=== PATIENT | male | born 1950 | race Two or more races ===

== ENCOUNTER 2019-05-15 11:25 | Inpatient (IN) | payer MEDICARE, OTHER ==
[~2019-05-15] VITALS: Ht 172.7 cm; Wt 83.7 kg
[2019-05-15] MEDS ORDERED: SODIUM CHLORIDE 0.9% 1,000 ML IV ONE ×2 (12:33)
[2019-05-15] MEDS ORDERED: MORPHINE SULFATE 4 MG/ML SYR/VIAL IV ONE (12:45)
[2019-05-15] MEDS ORDERED: ONDANSETRON HCL 4 MG/2 ML VIAL IV ONE (12:45)
[2019-05-15 13:16] LABS: Hematocrit 39.6 % (41.0-53.0); Mean Corpuscular Hemoglobin 28.9 pg (28.0-32.0); Mean Corpuscular Hgb Conc. 32.8 g/dL (32.0-36.0); Platelet Count (auto) 126 10^3/uL (140-450); Red Cell Distribution Width 15.1 % (11.8-14.3); White Blood Cell 21.6 10^3/uL (4.4-10.8)
[2019-05-15 13:18] LABS: Basophils % (manual) 0 (0.0-2.0); Blast Cells 0; Metamyelocytes % 0; Myelocytes % 0; Promyelocytes % 0; Reactive Lymphocytes 0
[2019-05-15 13:27] LABS: Urine Amorphous Crystal MANY /hpf (None Seen); Urine Bacteria NONE SEEN /hpf (None Seen); Urine Blood 2+ /uL (Negative); Urine Mucus FEW (None Seen); Urine Specific Gravity 1.021 (1.001-1.035); Urine WBC 1 /hpf (0 - 3)
[2019-05-15 13:33] LABS: Albumin 2.6 g/dL (3.4-5.0); BUN/Creatinine Ratio 19.1; Potassium 3.6 mmol/L (3.5-5.1)
[2019-05-15 13:38] LABS: Bilirubin, Total 0.8 mg/dL (0.2-1.0)
[2019-05-15] MEDS ORDERED: PIPERACILLIN-TAZOB 3.375GM 100 ML IV ONE (13:45)
[2019-05-15 13:55] LABS: Band Neutrophils % (manual) 13; Eosinophils % (manual) 4 (0-7); Lymphocytes % (manual) 1 (10.0-50.0); Monocytes % (manual) 3 (0-12)
[2019-05-15] MEDS ORDERED: MORPHINE SULF INJ 2 MG/ML SYRINGE 1ML IV PRN ×2 (14:30)
[2019-05-15] MEDS ORDERED: NITROGLYCERIN 0.4 MG SL TAB SL PRN (14:30)
[2019-05-15] MEDS ORDERED: ONDANSETRON HCL 4 MG/2 ML VIAL IV PRN (14:30)
[2019-05-15] MEDS: SODIUM CHLORIDE 0.9% 1,000 ML IV SCH (15:08)
[2019-05-15] MEDS ORDERED: CHOL20007 PO (16:22)
[2019-05-15] MEDS ORDERED: LOPETAB OR (16:22)
[2019-05-15] MEDS ORDERED: OMEG100062 PO (16:22)
--- NOTE | 2019-05-15 16:29 | NUR ---
PATIENT ARRIVED TO THE UNIT ALERT AND ORIENTED, STATED HE FEELS MUCH BETTER AND THE PAIN IS NOT THERE RIGHT NOW. PATIENT WAS ABLE TO PROVIDE INFORMATION. ORIENTED TO THE ROOM, CALL LIGHT AND PHONE. CALL LIGHT WITH IN REACH, SIDE RAILS UP X2 BED ON LOWEST POSITION.
[2019-05-15 17:00] VITALS: BP 124/73
[2019-05-15] MEDS: levoFLOXacin 500MG 100 ML IV SCH (17:26)
[2019-05-15] MEDS ORDERED: MORPHINE SULF INJ 2 MG/ML SYRINGE 1ML ONE (17:35)
--- NOTE | 2019-05-15 17:55 | NUR ---
PATIENT WAS MISTAKENLY DISCHARGED, BUT NOW HE IS BACK ON TH ESYSTEM AND ABLE TO RECEIVED TREATMENT. MORPHINE 1MG WAS GIVEN IV.
[2019-05-15] MEDS ORDERED: HYDROcodone-ACET 5/325MG TAB ONE (20:01)
[2019-05-15] MEDS ORDERED: metroNIDAZOLE 500MG/100ML 100 ML IV ONE (21:49)
[2019-05-15 22:00] VITALS: BP 120/73
[2019-05-15] MEDS: metroNIDAZOLE 500MG/100ML 100 ML IV SCH (22:10)
[2019-05-15] MEDS ORDERED: ONDANSETRON HCL 4 MG/2 ML VIAL ONE (22:35)
[2019-05-16] MEDS: SODIUM CHLORIDE 0.9% 1,000 ML IV SCH ×3 (00:30→22:04)
[2019-05-16] MEDS: metroNIDAZOLE 500MG/100ML 100 ML IV SCH ×3 (05:16→22:03)
[2019-05-16 05:34] VITALS: BP 137/72
[2019-05-16] MEDS ORDERED: ONDANSETRON HCL 4 MG/2 ML VIAL ONE (05:34)
--- NOTE | 2019-05-16 07:00 | NUR ---
PT RESTED WELL THROUGHOUT THE NIGHT;VITAL SIGNS STABLE;CALL LIGHT IN REACH.
--- NOTE | 2019-05-16 07:50 | NUR ---
OPENING SHIFT NOTE Assumed care of patient. PT is awake and A&O x4. POC discussed with PT. No s/s of distress at this time. Bed is in lowest, locked position, call light within reach, bed alarm on for safety. Will continue to monitor Q1h and PRN.
[2019-05-16 09:00] VITALS: BP 140/72
[2019-05-16] MEDS: FAMOTIDINE 20 MG TAB PO SCH (10:35)
[2019-05-16] MEDS: levoFLOXacin 500MG 100 ML IV SCH (10:36)
[2019-05-16] MEDS: PROMETHAZINE HCL 25 MG/ML 1ML IV PRN ×2 (12:25→22:20)
--- NOTE | 2019-05-16 12:39 | NUR ---
DR PACHECO MADE AWARE OF BOTH MICROBIOLOGY RESULTS.
--- NOTE | 2019-05-16 12:40 | NUR ---
PT HAS SBP OF 151. INFORMED DR PACHECO. PRN MEDICATION ORDERED. WILL ADMINISTER AND RECHECK
[2019-05-16 13:00] VITALS: BP 151/84
[2019-05-16] MEDS: LABETALOL HCL 5 MG/ML ML 20ML VIAL IV PRN ×2 (13:27→22:22)
[2019-05-16 17:00] VITALS: BP 149/77
--- NOTE | 2019-05-16 19:37 | NUR ---
Opening Shift Note Received report and assumed care of patient. Patient is asleep, awakens to name. No signs or symptoms of distress noted. Instructed patient on plan of care and to call for assistance as needed. Will continue to monitor.
[2019-05-16 22:00] VITALS: BP 167/87
[2019-05-16] MEDS: HYDROcodone-ACET 5/325MG TAB PO PRN (22:22)
[2019-05-17 05:00] VITALS: BP 157/86
[2019-05-17] MEDS: metroNIDAZOLE 500MG/100ML 100 ML IV SCH ×3 (06:04→21:26)
[2019-05-17] MEDS: HYDROcodone-ACET 5/325MG TAB PO PRN ×3 (06:04→23:33)
[2019-05-17] MEDS: LABETALOL HCL 5 MG/ML ML 20ML VIAL IV PRN (06:05)
[2019-05-17 06:12] LABS: Basophils # (auto) 0 10 ^3/uL (0-0.2); Basophils % (auto) 0.3 % (0.0-2.0); Eosinophils # (auto) 0.1 10 ^3/uL (0-0.8); Eosinophils % (auto) 1.1 % (0.0-7.0); Hemoglobin 11.7 g/dL (13.5-17.5); Lymphocytes # (auto) 0.9 10 ^3/uL (0.4-5.4); Lymphocytes % (auto) 6.9 % (10.0-50.0); Mean Corpuscular Hemoglobin 29.4 pg (28.0-32.0); Mean Corpuscular Hgb Conc. 33.5 g/dL (32.0-36.0); Mean Corpuscular Volume 87.7 fL (80.0-100.0); Monocytes # (auto) 0.8 10 ^3/uL (0-1.3); Monocytes % (auto) 5.9 % (0.0-12.0); Neutrophils # (auto) 11.5 10 ^3/uL (1.6-8.6); Neutrophils % (auto) 85.8 % (37.0-80.0); Platelet Count (auto) 108 10^3/uL (140-450); Red Blood Cells 3.99 10^6/uL (4.5-5.90); Red Cell Distribution Width 14.9 % (11.8-14.3); White Blood Cell 13.4 10^3/uL (4.4-10.8)
[2019-05-17] MEDS: SODIUM CHLORIDE 0.9% 1,000 ML IV SCH ×2 (06:30→18:36)
[2019-05-17 06:37] LABS: Albumin 2.2 g/dL (3.4-5.0); BUN/Creatinine Ratio 15.2; Calcium 7.7 mg/dL (8.5-10.1)
[2019-05-17 07:01] LABS: Bilirubin, Total 0.8 mg/dL (0.2-1.0); Total Protein 5.4 g/dL (6.4-8.2)
--- NOTE | 2019-05-17 07:04 | NUR ---
Pain reassessment Reassessed patient pain level, patient stated 4/10 after pain medication administration. Educated patient on pain level scales and pain medication. Repositioned patient for comfort and provided with ice packs. Will endorse to AM nurse.
[2019-05-17 07:43] LABS: Potassium 2.9 mmol/L (3.5-5.1)
--- NOTE | 2019-05-17 07:49 | NUR ---
OPENING SHIFT NOTE Assumed care of patient. PT is awake and A&O x4. POC discussed with PT. Notified of critical lab value. Will notify Dr Bess. Bed is in lowest, locked position, call light within reach, bed alarm on for safety. Will continue to monitor Q1h and PRN.
--- NOTE | 2019-05-17 08:05 | NUR ---
REASSESSED PT ORAL TEMP IS 98.8. DR PACHECO IS AWARE.
--- NOTE | 2019-05-17 08:06 | NUR ---
LEFT VOICEMAIL FOR DR PACHECO REGARDING CRITICAL LAB VALUE AND NIGHTSHIFT VITAL SIGNS WITH REASSESSMENT. AWAITING RESPONSE.
[2019-05-17] MEDS ORDERED: POTASSIUM CHLORIDE 40 MEQ, LIDOCAINE 1% (LOCAL ANESTH.) 4 ML in SODIUM CHL 0.9% 100 ML IV ONE (08:15)
[2019-05-17 09:00] VITALS: BP 159/73
[2019-05-17] MEDS: levoFLOXacin 500MG 100 ML IV SCH (09:22)
[2019-05-17] MEDS: LISINOPRIL 20 MG TAB PO SCH (09:23)
[2019-05-17] MEDS: METOPROLOL TARTRATE 25 MG TAB PO SCH ×2 (09:24→21:26)
[2019-05-17] MEDS: FAMOTIDINE 20 MG TAB PO SCH (09:24)
[2019-05-17 13:00] VITALS: BP 127/75
[2019-05-17 17:17] VITALS: BP 143/73
--- NOTE | 2019-05-17 19:15 | NUR ---
Opening Shift Note Received report from Will RN. Assumed care of patient, awake and alert. No S/S of distress/SOB or pain. Instructed on POC and to call for assist PRN. Fall precaution measures in place, will continue to monitor for changes Q1hr and PRN.
[2019-05-17] MEDS: PROMETHAZINE HCL 25 MG/ML 1ML IV PRN (21:27)
[2019-05-17 22:00] VITALS: BP 181/87
--- NOTE | 2019-05-17 23:33 | NUR ---
LIAT Gan called RN to inform that patient walked out of the room and went into other patient's room. RN went into the room and requested Elvia to interpret what the patient is saying as patient is Chinese speaking. Patient is somewhat confused as he is saying something about the green roll mechanic and kept pacing by the bed and the RN and MINERAL SURVEYOR is explaining that is the IV fluid pump connected. After a while, patient was able to go back to bed and [place] given for headache and abdominal pain at 4/. Bed alarm on, will continue to monitor patient.
[2019-05-18 02:00] VITALS: BP 149/70
[2019-05-18] MEDS: SODIUM CHLORIDE 0.9% 1,000 ML IV SCH ×3 (02:30→22:37)
[2019-05-18 05:00] VITALS: BP 162/79
[2019-05-18] MEDS: metroNIDAZOLE 500MG/100ML 100 ML IV SCH ×3 (06:00→21:27)
[2019-05-18] MEDS: LABETALOL HCL 5 MG/ML ML 20ML VIAL IV PRN ×4 (06:04→17:23)
[2019-05-18 06:07] LABS: Basophils # (auto) 0 10 ^3/uL (0-0.2); Basophils % (auto) 0.3 % (0.0-2.0); Eosinophils # (auto) 0.2 10 ^3/uL (0-0.8); Hematocrit 35.6 % (41.0-53.0); Hemoglobin 11.8 g/dL (13.5-17.5); Lymphocytes # (auto) 1.1 10 ^3/uL (0.4-5.4); Lymphocytes % (auto) 10.2 % (10.0-50.0); Mean Corpuscular Hgb Conc. 33.1 g/dL (32.0-36.0); Mean Corpuscular Volume 87.7 fL (80.0-100.0); Monocytes # (auto) 0.9 10 ^3/uL (0-1.3); Monocytes % (auto) 8.3 % (0.0-12.0); Neutrophils # (auto) 8.9 10 ^3/uL (1.6-8.6); Neutrophils % (auto) 79.2 % (37.0-80.0); Platelet Count (auto) 116 10^3/uL (140-450); Red Blood Cells 4.06 10^6/uL (4.5-5.90); White Blood Cell 11.2 10^3/uL (4.4-10.8)
[2019-05-18 06:22] LABS: Albumin 2.2 g/dL (3.4-5.0); Calcium 7.7 mg/dL (8.5-10.1); Potassium 3.2 mmol/L (3.5-5.1)
[2019-05-18 06:25] LABS: BUN/Creatinine Ratio 12.9; Bilirubin, Total 0.7 mg/dL (0.2-1.0); Total Protein 5.4 g/dL (6.4-8.2)
--- NOTE | 2019-05-18 07:25 | NUR ---
Patient is more alert and oriented now. Endorsed care to Herminia ARMSTRONG.
[2019-05-18 08:00] VITALS: BP 154/88
--- NOTE | 2019-05-18 08:00 | NUR ---
Morning note patient resting in bed with even and unlabored respirations on room air, no distress noted. Instructed patient on POC, fall precautions and to call for assistance as needed. Patient verbalized understanding. Fall precautions in place with call light within reach.
[2019-05-18] MEDS: PROMETHAZINE HCL 25 MG/ML 1ML IV PRN ×2 (09:54→17:31)
[2019-05-18] MEDS: levoFLOXacin 500MG 100 ML IV SCH (09:54)
[2019-05-18] MEDS: METOPROLOL TARTRATE 25 MG TAB PO SCH ×2 (09:54→21:27)
[2019-05-18] MEDS: LISINOPRIL 20 MG TAB PO SCH (09:55)
[2019-05-18] MEDS: PANTOPRAZOLE 40 MG TAB PO SCH ×2 (09:55→21:27)
[2019-05-18] MEDS ORDERED: POTASSIUM CHLORIDE 40 MEQ, LIDOCAINE 1% (LOCAL ANESTH.) 4 ML in SODIUM CHL 0.9% 100 ML IV ONE (10:00)
--- NOTE | 2019-05-18 10:04 | NUR ---
MD was at bedside - Dr. Bess/Pain management This RN was at bedside. This RN removed PRN [place] to be administered for pain. MD instructed RN to non-administer medication. MD to place new order for PRN pain medication.
--- NOTE | 2019-05-18 10:45 | NUR ---
Patient resting in bed with eyes closed Respirations even and unlabored on room air, no distress noted. Patient's spouse at bedside updated on POC.
[2019-05-18] MEDS: HYDROmorphone HCL 2 MG/ML VL IV PRN (11:14)
[2019-05-18] MEDS: ACETAMINOPHEN 500 MG TAB PO PRN (11:46)
--- NOTE | 2019-05-18 11:55 | NUR ---
Patient placed on 1 LPM NC - pulse ox 93% on room air. Respirations even and unlabored, no distress noted. Call light within reach.
--- NOTE | 2019-05-18 11:57 | NUR ---
Cooling measures applied for elevated temperature Temperature 101.2 degrees Fahrenheit. Cooling measures applied. Patient medicated for elevated temperature per MD order. Respirations even and unlabored on 1 LPM NC, no distress noted. Patient's spouse at bedside. Fall precautions in place with call light within reach.
[2019-05-18 12:00] VITALS: BP 176/90
--- NOTE | 2019-05-18 13:02 | NUR ---
RE: Temperature Patient's temperature remains elevated. Cooling measures remain in place. New ice packs applied. Respirations even and unlabored on 1 LPM NC, no distress noted. Pulse ox 98%. Fall precautions in place with call light within reach.
--- NOTE | 2019-05-18 14:43 | NUR ---
Patient resting in bed with even and unlabored respirations on 1 lpm NC, no distress noted. Fall precautions in place with call light within reach. Patient's spouse at bedside.
[2019-05-18 16:55] VITALS: BP 142/77
--- NOTE | 2019-05-18 17:07 | NUR ---
RE: Elevated BP Contacted Dr. Roque to notify of continued elevated BP and ordered BP medications. Message left.
--- NOTE | 2019-05-18 17:50 | NUR ---
Order received and read back to verify. Order received from Dr. Roque.
[2019-05-18] MEDS ORDERED: NIFEdipine ER 30 MG TAB PO ONE (18:00)
--- NOTE | 2019-05-18 18:38 | NUR ---
RE: Pain Patient states "I feel a little better than early." Patient reports pain 4/10. Patient is being medicated for pain per MD order.
--- NOTE | 2019-05-18 18:39 | NUR ---
RE: Diet - poor appetite - refusing meal Patient has refused all meal trays during this RN's shift. Patient stated "I just don't want to eat that." Patient has been medicated for nausea per MD order. Patient reports nausea has improved.
--- NOTE | 2019-05-18 18:40 | NUR ---
Education provided on new medication Patient verbalized understanding. Patient denies having any questions RE: new BP medication. Patient stated "I just want to sleep right now."
--- NOTE | 2019-05-18 18:55 | NUR ---
Closing note patient resting in bed with even and unlabored respirations on room air, no distress noted. Fall precautions in place with call light within reach. Bed alarm on for safety. Patient able to turn self independently.
--- NOTE | 2019-05-18 19:06 | NUR ---
Care endorsed to PATTI Brand.
--- NOTE | 2019-05-18 19:15 | NUR ---
Opening Shift Note Received report from Herminia ARMSTRONG. Assumed care of patient, awake and alert. No S/S of distress/SOB or pain. Instructed on POC and to call for assist PRN, will continue to monitor for changes Q1hr and PRN.
[2019-05-18 22:12] VITALS: BP 158/92
[2019-05-19 05:01] VITALS: BP 125/69
[2019-05-19 05:22] LABS: Basophils # (auto) 0 10 ^3/uL (0-0.2); Basophils % (auto) 0.5 % (0.0-2.0); Eosinophils # (auto) 0.1 10 ^3/uL (0-0.8); Eosinophils % (auto) 0.8 % (0.0-7.0); Hematocrit 36.3 % (41.0-53.0); Hemoglobin 12.3 g/dL (13.5-17.5); Lymphocytes % (auto) 11.6 % (10.0-50.0); Mean Corpuscular Hemoglobin 29.3 pg (28.0-32.0); Mean Corpuscular Hgb Conc. 33.9 g/dL (32.0-36.0); Mean Corpuscular Volume 86.5 fL (80.0-100.0); Monocytes # (auto) 1.3 10 ^3/uL (0-1.3); Monocytes % (auto) 15.3 % (0.0-12.0); Neutrophils # (auto) 6.1 10 ^3/uL (1.6-8.6); Neutrophils % (auto) 71.8 % (37.0-80.0); Platelet Count (auto) 121 10^3/uL (140-450); Red Blood Cells 4.19 10^6/uL (4.5-5.90); Red Cell Distribution Width 14.5 % (11.8-14.3); White Blood Cell 8.5 10^3/uL (4.4-10.8)
[2019-05-19] MEDS: metroNIDAZOLE 500MG/100ML 100 ML IV SCH ×3 (05:48→21:46)
[2019-05-19 05:49] LABS: Albumin 2.2 g/dL (3.4-5.0); Calcium 7.6 mg/dL (8.5-10.1)
[2019-05-19 05:53] LABS: Bilirubin, Total 0.7 mg/dL (0.2-1.0); Potassium 2.9 mmol/L (3.5-5.1); Total Protein 5.5 g/dL (6.4-8.2)
[2019-05-19 05:54] LABS: BUN/Creatinine Ratio 15.5
[2019-05-19] MEDS: PROMETHAZINE HCL 25 MG/ML 1ML IV PRN ×2 (05:55→16:26)
--- NOTE | 2019-05-19 07:05 | NUR ---
Paged Dr. Bess re K2.9, left message, awaiting for call back.
--- NOTE | 2019-05-19 07:10 | NUR ---
Dr. Bess called back and received order, carried out and followed thru. Endorsed to Trina ARMSTRONG.
[2019-05-19] MEDS ORDERED: POTASSIUM CHLORIDE 80 MEQ, LIDOCAINE 1% (LOCAL ANESTH.) 6 ML in SODIUM CHL 0.9% 500 ML IV ONE (07:30)
--- NOTE | 2019-05-19 07:30 | NUR ---
OPENING NOTE ASSUMED CARE OF PT. ALERT AND ORIENTED. NO S/S OF SOB/DISTRESS NOTED. SAFETY PRECAUTIONS IN PLACE. BED SET TO LOWEST POSITION/LOCKED, BEDSIDE RAIL UP X2, BED ALARM ON, CALL LIGHT WITHIN REACH. INSTRUCTED PT TO CALL FOR ASSISTANCE. UPDATED ON POC. PT VERBALIZED UNDERSTANDING. WILL CONTINUE TO MONITOR Q1HR AND PRN.
[2019-05-19 08:00] VITALS: BP 124/72
[2019-05-19] MEDS: SODIUM CHLORIDE 0.9% 1,000 ML IV SCH ×2 (08:26→11:14)
[2019-05-19] MEDS: levoFLOXacin 500MG 100 ML IV SCH (08:27)
[2019-05-19] MEDS: METOPROLOL TARTRATE 25 MG TAB PO SCH ×2 (08:27→21:49)
[2019-05-19] MEDS: LISINOPRIL 20 MG TAB PO SCH (08:28)
[2019-05-19] MEDS: PANTOPRAZOLE 40 MG TAB PO SCH ×2 (08:28→21:46)
[2019-05-19] MEDS: NIFEdipine ER 30 MG TAB PO SCH (08:28)
[2019-05-19] MEDS: ACETAMINOPHEN 500 MG TAB PO PRN ×2 (08:29→16:26)
[2019-05-19 12:00] VITALS: BP 112/68
--- NOTE | 2019-05-19 14:33 | NUR ---
PT orders received. Pt's K+ is 2.9. Mobilization is not appropriate at this time. Will attempt again tomorrow.
--- NOTE | 2019-05-19 15:23 | NUR ---
Nutrition Assessment Notes Please refer to link for full assessment notes. Est energy needs: 7498-4667 kcals (23-25 kcal/kgBW) Est protein needs: 81-89 gms/day (1.0-1.1 gm/kgBW) Will continue to monitor and reassess prn. Addendum: 05/19/19 at [address]ñez RD Amended: Links added.
[2019-05-19 16:47] VITALS: BP 129/68
--- NOTE | 2019-05-19 19:35 | NUR ---
Opening Shift Note Assumed care of patient, awake and alert. No S/S of distress/SOB or pain. Instructed on POC and to call for assist PRN, patient verbalized understanding. Safety measures ensured, call light within reach, will continue to monitor for changes Q1hr and PRN.
[2019-05-19 22:30] VITALS: BP 118/60
[2019-05-20] MEDS: PROMETHAZINE HCL 25 MG/ML 1ML IV PRN ×3 (01:09→17:30)
[2019-05-20] MEDS: ACETAMINOPHEN 500 MG TAB PO PRN ×2 (01:09→16:17)
[2019-05-20] MEDS: SODIUM CHLORIDE 0.9% 1,000 ML IV SCH ×2 (04:30→15:34)
[2019-05-20 05:22] VITALS: BP 111/57
[2019-05-20] MEDS: metroNIDAZOLE 500MG/100ML 100 ML IV SCH ×3 (06:18→22:25)
[2019-05-20 06:39] LABS: Hematocrit 34.2 % (41.0-53.0); Hemoglobin 11.5 g/dL (13.5-17.5); Mean Corpuscular Hemoglobin 29.1 pg (28.0-32.0); Mean Corpuscular Hgb Conc. 33.6 g/dL (32.0-36.0); Mean Corpuscular Volume 86.4 fL (80.0-100.0); Platelet Count (auto) 145 10^3/uL (140-450); Red Blood Cells 3.96 10^6/uL (4.5-5.90); Red Cell Distribution Width 14.6 % (11.8-14.3); White Blood Cell 5.6 10^3/uL (4.4-10.8)
[2019-05-20 06:47] LABS: BUN/Creatinine Ratio 17.6; Calcium 7.2 mg/dL (8.5-10.1)
[2019-05-20 06:49] LABS: Potassium 2.8 mmol/L (3.5-5.1)
[2019-05-20 06:54] LABS: Band Neutrophils % (manual) 0; Basophils % (manual) 0 (0.0-2.0); Blast Cells 0; Metamyelocytes % 0; Myelocytes % 0; Promyelocytes % 0; Reactive Lymphocytes 0
--- NOTE | 2019-05-20 06:55 | NUR ---
Received a critical Potassium of 2.8. Paged Dr. Bess and left a message. Awaiting call back
--- NOTE | 2019-05-20 07:03 | NUR ---
Dr. Bess called back and updated on patient's status. Received orders at this time, acknowledged and read back. Will put in order
[2019-05-20] MEDS ORDERED: POTASSIUM CHLORIDE 80 MEQ, LIDOCAINE 1% (LOCAL ANESTH.) 6 ML in SODIUM CHL 0.9% 500 ML IV ONE (07:15)
[2019-05-20 07:40] LABS: Eosinophils % (manual) 1 (0-7); Lymphocytes % (manual) 15 (10.0-50.0); Monocytes % (manual) 16 (0-12)
[2019-05-20 08:55] VITALS: BP 130/71
[2019-05-20] MEDS: METOPROLOL TARTRATE 25 MG TAB PO SCH ×2 (08:59→22:26)
[2019-05-20] MEDS: POTASSIUM CHL 20MEQ/100ML 100 ML IV SCH ×4 (08:59→16:16)
[2019-05-20] MEDS: LISINOPRIL 20 MG TAB PO SCH (09:00)
[2019-05-20] MEDS: NIFEdipine ER 30 MG TAB PO SCH (09:00)
[2019-05-20] MEDS: PANTOPRAZOLE 40 MG TAB PO SCH ×2 (09:00→22:25)
[2019-05-20] MEDS: levoFLOXacin 500MG 100 ML IV SCH (09:01)
[2019-05-20] MEDS ORDERED: PPN PER PHARMACY 0 ML IV SCH (10:45)
[2019-05-20] MEDS ORDERED: LIDOCAINE VISCOUS 2% 15ML UD ONE (11:09)
[2019-05-20] MEDS ORDERED: MIDAZOLAM HCL 5 MG/ML-1ML VIAL ONE (11:09)
[2019-05-20] MEDS ORDERED: SODIUM CHLORIDE LOCK 10 ML ONE (11:09)
[2019-05-20] MEDS ORDERED: diphenhdrAMINE HCL 50 MG/1 ML VL ONE (11:10)
[2019-05-20] MEDS ORDERED: fentaNYL CITRATE 100 MCG/2 ML VL ONE (11:10)
[2019-05-20 11:31] LABS: Phosphorus 2.1 mg/dL (2.5-4.90)
[2019-05-20 11:35] LABS: Pre Albumin 6.6 mg/dL (20.0-40.0)
--- NOTE | 2019-05-20 11:37 | NUR ---
Attempted PT eval. Pt's K+ is trending down and is now 2.8. Pt is not appropriate for mobilization with K+ <3.0. Will attempt again tomorrow.
[2019-05-20] MEDS ORDERED: POTASSIUM PHOSPHATE 22 MEQ in SODIUM CHL 0.9% 100 ML IV ONE (12:15)
[2019-05-20 13:00] VITALS: BP 130/68
--- NOTE | 2019-05-20 13:16 | NUR ---
PATIENT WHEELED DOWN TO PRE OP FOR SCHEDULED EGD. PATIENT SIGNED PAPERWORK. PATIENT ALERT AND ORIENTED X4. AWARE OF PROCEDURE. PATIENT NO S/S OF DISTRESS NOTED AT THIS TIME.
[2019-05-20 13:29] LABS: INR 1.35 (0.9-1.15); Partial Thromboplastin Time 37.5 sec (23.64-32.05)
--- NOTE | 2019-05-20 13:30 | NUR ---
SPOKE TO PHARMACY REGARDING PATIENTS ORDER FOR POTASSIUM. INFORMED PATIENT IS ALREADY RECEIVING POTASSIUM. INSTRUCTED TO GIVE NEW ORDER OF POTASSIUM PHOSPHATE.
--- NOTE | 2019-05-20 15:24 | NUR ---
ASSESSED FOR PATIENT GAG REFLEX. GAG REFLEX PRESENT. PATIENT ABLE TO SIP A SMALL AMOUNT OF WATER AT THIS TIME.
[2019-05-20 16:52] VITALS: BP 124/65
[2019-05-20] MEDS: SUCRALFATE 1 GM/10 ML ORAL SUSP PO SCH ×2 (17:29→22:25)
[2019-05-20] MEDS ORDERED: POTASSIUM CHL 20MEQ/100ML 100 ML IV SCH (18:45)
[2019-05-20 20:00] VITALS: BP 116/68
[2019-05-20] MEDS ORDERED: PPN PER PHARMACY IV NR ×8 (20:00)
--- NOTE | 2019-05-20 20:00 | NUR ---
Opening Shift Note Assumed care of patient, awake and alert. No S/S of distress/SOB or pain. Patient is on room air. Respirations even and unlabored. Instructed on POC and to call for assist PRN, will continue to monitor for changes Q1hr and PRN. Addendum: 05/21/19 at 0800 by Jordyn Rudd RN Patient is on 2 liters of oxygen via nasal cannula.
[2019-05-20 22:18] VITALS: BP_SYST 116; BP_SYST 16; BP_DIAS 68
--- NOTE | 2019-05-20 23:23 | NUR ---
Stool sample sent to lab for C. Diff test.
[2019-05-20] MEDS: HYDROmorphone HCL 2 MG/ML VL IV PRN (23:59)
[2019-05-21] VITALS (9 sets, daily range): BP systolic 112–163; BP diastolic 66–86
[2019-05-21] MEDS: SODIUM CHLORIDE 0.9% 1,000 ML IV SCH ×3 (00:30→13:15)
[2019-05-21] MEDS: PROMETHAZINE HCL 25 MG/ML 1ML IV PRN ×2 (01:06→22:39)
--- NOTE | 2019-05-21 03:10 | NUR ---
Episode of confusion Patient found sitting in roommate's bed with IV removed from left hand with catheter intact and minimal amount of bleeding present from IV site and on gown. Patient is aware of his name, date, and year. Patient states he is at home. Patient easily reoriented to hospital setting. Patient states he is at the hospital for stomach pain. Gauze applied to previous IV site and gown changed. Patient's bed linens changed.
--- NOTE | 2019-05-21 03:28 | NUR ---
IV insertion IV access obtained, via clean sterile technique by inserting 22 gauge catheter at left wrist after 1 attempt by Lucy ARMSTRONG. IV secured properly. No trauma to site. Patient tolerated well.
[2019-05-21] MEDS: metroNIDAZOLE 500MG/100ML 100 ML IV SCH ×3 (05:33→22:39)
--- NOTE | 2019-05-21 05:40 | NUR ---
Blood pressure and HR reassessed. Blood pressure is 139/75 and HR is 94. Patient asymptomatic.
[2019-05-21] MEDS: SUCRALFATE 1 GM/10 ML ORAL SUSP PO SCH ×4 (06:06→22:38)
--- NOTE | 2019-05-21 06:52 | NUR ---
Daughter contacted regarding episode of confusion Patient's daughter states that her mom has noticed patient has been confused at times in the last month. Daughter requests mom to be notified. Will endorse to day shift RN. Correct phone number for patient's per patient's daughter is .
--- NOTE | 2019-05-21 07:00 | NUR ---
CLOSING NOTE No S/S of distress/SOB or pain. Patient is on 2 liters of oxygen via nasal cannula. Respirations even and unlabored.
[2019-05-21 08:52] LABS: Basophils # (auto) 0 10 ^3/uL (0-0.2); Basophils % (auto) 0.5 % (0.0-2.0); Eosinophils # (auto) 0.1 10 ^3/uL (0-0.8); Eosinophils % (auto) 0.8 % (0.0-7.0); Hematocrit 36.6 % (41.0-53.0); Hemoglobin 12.4 g/dL (13.5-17.5); Lymphocytes # (auto) 1.3 10 ^3/uL (0.4-5.4); Mean Corpuscular Hemoglobin 29.1 pg (28.0-32.0); Mean Corpuscular Hgb Conc. 33.9 g/dL (32.0-36.0); Mean Corpuscular Volume 85.9 fL (80.0-100.0); Monocytes % (auto) 15.9 % (0.0-12.0); Neutrophils # (auto) 3.8 10 ^3/uL (1.6-8.6); Neutrophils % (auto) 61.8 % (37.0-80.0); Platelet Count (auto) 180 10^3/uL (140-450); Red Blood Cells 4.26 10^6/uL (4.5-5.90); Red Cell Distribution Width 14.6 % (11.8-14.3); White Blood Cell 6.2 10^3/uL (4.4-10.8)
[2019-05-21 09:12] LABS: Magnesium 1.8 mg/dL (1.6-2.6); Phosphorus 2.4 mg/dL (2.5-4.90)
[2019-05-21 09:15] LABS: Albumin 2.3 g/dL (3.4-5.0); Calcium 7.3 mg/dL (8.5-10.1)
[2019-05-21 09:18] LABS: BUN/Creatinine Ratio 14.4; Bilirubin, Total 0.3 mg/dL (0.2-1.0); Total Protein 5.7 g/dL (6.4-8.2)
[2019-05-21] MEDS: levoFLOXacin 500MG 100 ML IV SCH (09:54)
[2019-05-21] MEDS: PANTOPRAZOLE 40 MG TAB PO SCH ×2 (09:55→22:36)
[2019-05-21] MEDS: METOPROLOL TARTRATE 25 MG TAB PO SCH ×2 (09:55→22:36)
[2019-05-21] MEDS: LISINOPRIL 20 MG TAB PO SCH (09:56)
[2019-05-21] MEDS: NIFEdipine ER 30 MG TAB PO SCH (09:58)
[2019-05-21] MEDS ORDERED: POTASSIUM PHOSPHATE 44 MEQ in D5W 5% 250 ML IV ONE (11:00)
--- NOTE | 2019-05-21 11:09 | NUR ---
Dr. Hernandez at bedside to discuss plan of care with patient.
[2019-05-21] MEDS ORDERED: DEXTROSE (50%) 50ML SYRG IV SCH (11:15)
--- NOTE | 2019-05-21 11:15 | NUR ---
Pharmacy called to notify me of potassium order
[2019-05-21] MEDS: InsuLIN REG 1unit/0.01ml Soln (100units/ml) SC SCH ×2 (13:12→18:00)
[2019-05-21] MEDS: ACCU-CHEK COMFORT CURVE STRIP VI SCH ×2 (13:14→18:11)
--- NOTE | 2019-05-21 13:18 | NUR ---
Dr. Bess in to see patient and discuss plan of care
--- NOTE | 2019-05-21 15:45 | NUR ---
PATIENT IS DENYING ANY CHEST PAIN, SOB OR RADIATING PAIN AT THIS TIME. NOTIFIED PATIENT IF THESE SYMPTOMS OCCUR TO NOTIFY ME IMMEDIATELY
--- NOTE | 2019-05-21 15:45 | NUR ---
Patient having sustained A fib after ambulating with . Notified Dr. Roque and received order. Will document and carry out.
--- NOTE | 2019-05-21 15:54 | NUR ---
Patient in Afib, Dr. Roque notified Addendum: 05/21/19 at 1555 by ZULY JARVIS RN RN Amended: Links added.
[2019-05-21] MEDS: SOTALOL HCL 80 MG TAB PO SCH ×2 (16:21→22:38)
--- NOTE | 2019-05-21 19:30 | NUR ---
Opening Shift Note Assumed care of patient, awake, alert and oriented X 4. Patient complains of pain in right hand IV. IV found to be infiltrated and swollen. IV discontinued, catheter tip intact and pressure dressing applied, patient tolerated well. IV on the left forearm also found to be infiltrated, IV discontinued, catheter tip intact, and pressure dressing applied, patient tolerated well. PT is connected telemetry box # 63 with a HR of 113 and AFib/Aflutter, PT shows no S/S of SOB or distress. Bed is low, locked, two side rails raised and call coronado is within reach. Instructed on POC and to call for assist PRN, will continue to monitor for changes Q1hr and PRN.
--- NOTE | 2019-05-21 20:00 | NUR ---
New IV 22 gauge IV inserted in left forearm, and 22 gauge IV inserted in left antecubital, patient tolerated well with no S/S of distress. Will continue to monitor. Addendum: 05/22/19 at 0103 by LETICIA REYES RN RN IV's both inserted by Primary RN.
[2019-05-21] MEDS: TPN PER PHARMACY IV NR ×9 (20:59)
[2019-05-22] MEDS: ACCU-CHEK COMFORT CURVE STRIP VI SCH ×4 (00:21→17:42)
[2019-05-22 04:30] VITALS: BP 132/65
[2019-05-22] MEDS: InsuLIN REG 1unit/0.01ml Soln (100units/ml) SC SCH ×4 (06:00→17:42)
[2019-05-22] MEDS: SUCRALFATE 1 GM/10 ML ORAL SUSP PO SCH ×4 (06:02→21:44)
[2019-05-22] MEDS: metroNIDAZOLE 500MG/100ML 100 ML IV SCH ×3 (06:02→21:45)
[2019-05-22] MEDS: SODIUM CHLORIDE 0.9% 1,000 ML IV SCH ×2 (06:03→23:43)
[2019-05-22 06:13] LABS: Calcium 7.1 mg/dL (8.5-10.1); Magnesium 2.1 mg/dL (1.6-2.6)
[2019-05-22 06:19] LABS: Bilirubin, Total 0.4 mg/dL (0.2-1.0); Phosphorus 2.2 mg/dL (2.5-4.90)
--- NOTE | 2019-05-22 06:30 | NUR ---
Received critical lab value from Ailyn in lab regarding a potassium level of 2.9. Called Md Bess and left message regarding this lab value. Awaiting call back.
[2019-05-22 06:43] LABS: Potassium 2.9 mmol/L (3.5-5.1)
--- NOTE | 2019-05-22 07:05 | NUR ---
RECEIVED TELEPHONE ORDER FROM MD. PACHECO REGARDING POTASSIUM VALUE OF 2.9 MEQ, RECEIVED ORDER FOR: 80 MEQ POTASSIUM IV WITH LIDOCAINE AND AN ADDITIONAL 40 MEQ POTASSIUM TO BE ADDED TO THE PPN. CALLED PHARMACY AND SPOKE WITH PHARMACIST REGARDING THE ADDITIONAL POTASSIUM TO BE ADDED TO THE PPN.
--- NOTE | 2019-05-22 07:30 | NUR ---
Opening Shift Note Assumed care of patient, awake and alert. No S/S of distress/SOB or pain. Instructed on POC and to call for assist PRN, will continue to monitor for changes Q1hr and PRN.
[2019-05-22 08:00] VITALS: BP 118/66
[2019-05-22] MEDS ORDERED: POTASSIUM CHL 20MEQ/100ML 100 ML IV SCH (08:00)
--- NOTE | 2019-05-22 09:20 | NUR ---
IV x 2 left forearm puffy and tender to touch. Both IVs removed with tips intact. Pressure dressing to each site. Attempted IV restart X 2 without success.
[2019-05-22] MEDS ORDERED: POTASSIUM CHLORIDE 40 MEQ, LIDOCAINE 1% (LOCAL ANESTH.) 4 ML in SODIUM CHL 0.9% 100 ML IV ONE ×6 (09:30)
--- NOTE | 2019-05-22 09:30 | NUR ---
IV insertion IV access obtained, via clean sterile technique by inserting 22 gauge catheter at right forearm after 1 attempt. IV secured properly. No trauma to site. Patient tolerated procedure well. IV started by Sayda Mariano RN.
--- NOTE | 2019-05-22 09:35 | NUR ---
IV insertion IV access obtained, via clean sterile technique by inserting 22 gauge catheter at left wrist after 1 attempt. IV secured properly. No trauma to site. Patient tolerated procedure well. IV started by Sayda Mariano RN.
[2019-05-22] MEDS: METOPROLOL TARTRATE 25 MG TAB PO SCH ×2 (10:07→21:46)
[2019-05-22] MEDS: NIFEdipine ER 30 MG TAB PO SCH (10:09)
[2019-05-22] MEDS: PANTOPRAZOLE 40 MG TAB PO SCH ×2 (10:10→21:45)
[2019-05-22] MEDS: LISINOPRIL 20 MG TAB PO SCH (10:10)
[2019-05-22] MEDS: POTASSIUM CHLORIDE 40 MEQ, LIDOCAINE 1% (LOCAL ANESTH.) 4 ML in SODIUM CHL 0.9% 100 ML IV SCH ×2 (10:10→14:44)
[2019-05-22] MEDS: levoFLOXacin 500MG 100 ML IV SCH (10:10)
[2019-05-22] MEDS: SOTALOL HCL 80 MG TAB PO SCH ×2 (10:12→21:45)
--- NOTE | 2019-05-22 12:25 | NUR ---
Nutrition Follow-up/CONSULT Notes Wt.: 81.9 kg today Pt was asleep with spouse by bedside when rounded this morning. Pt currently on Full liquid diet order with fair appetite aeb avg PO intake of 63%. Pt also receiving TPN @59 ml/hr providing 848 kcal, 60 gms protein, 608 NPCs and 7% Fat. Pt with inadequate PN support aeb 42% to 46% of est caloric needs and 67% to 74% protein needs. Spouse requested to have nutrition educational handout with discharge papers. Provided nutrition education handouts as requested. Est energy needs: 0662-1453 kcals (23-25 kcal/kgBW). Est protein needs: 81-89 gms/day (1.0-1.1 gm/kgBW). Will continue to monitor pertinent labs and reassess nutrient needs prn. Labs 05/21: Na 135 L, K 2.9 L, serum glucose 119 H, POC 113 H, Ca 7.1 L, P 2.2 L, TP 5 L, Albumin 2.0 L Skin: Gregory scale 22, low risk, skin intact per superintendent building. GI: Pt had BM 05/21/19 per superintendent building. PES: 1) Altered nutrition related lab values r/t current medical condition aeb hypokal, hypocalc, severe hypoalb Will continue to monitor PO status, TPN regimen, skin status, pertinent labs and weight trend. F/u in 2 to 3 days. Recommendations: 1) Continue to closely monitor pt PO intake to meet a goal of at least 75% of meals eaten 2) Gradually advance pt to oral Low fiber diet when medically feasible, as tolerated 3) If albumin continues trending down, consider Prostat 1 pkt BID 4) Continue current plan of care
[2019-05-22 13:00] VITALS: BP 106/64
[2019-05-22] MEDS: ACETAMINOPHEN 500 MG TAB PO PRN (15:32)
--- NOTE | 2019-05-22 16:15 | NUR ---
Patient C/O headache. Tylenol PO given. Will continue to monitor.
[2019-05-22 17:00] VITALS: BP 102/57
--- NOTE | 2019-05-22 18:13 | NUR ---
Patient states headache relieved.
--- NOTE | 2019-05-22 19:30 | NUR ---
Opening Shift Note Assumed care of patient, awake, alert, and oriented X 4, No S/S of SOB or pain, Patient complains of nausea, will medicate PRN. Patient connected to telemetry box #63 with HR of 78 bpm. Bed is low, locked, two side rails raised, and call coronado is within reach. Instructed on POC and to call for assist PRN, will continue to monitor for changes Q1hr and PRN.
[2019-05-22] MEDS: TPN PER PHARMACY IV NR ×9 (19:52)
[2019-05-22 20:00] VITALS: BP 125/75
[2019-05-22] MEDS ORDERED: PPN PER PHARMACY IV NR ×9 (20:00)
[2019-05-22] MEDS: PROMETHAZINE HCL 25 MG/ML 1ML IV PRN (21:44)
--- NOTE | 2019-05-22 22:00 | NUR ---
IV insertion. New right hand 22 gauge IV inserted by manager review Donna. Patient tolerated well.
[2019-05-23 05:00] VITALS: BP 124/70
--- NOTE | 2019-05-23 05:09 | NUR ---
Left hand 22 gauge IV discontinued, catheter tip intact, pressure dressing applied, patient states that it is tender, heat pack given for edema. Will continue to monitor.
[2019-05-23] MEDS: InsuLIN REG 1unit/0.01ml Soln (100units/ml) SC SCH ×2 (06:00)
[2019-05-23 06:01] LABS: Basophils # (auto) 0 10 ^3/uL (0-0.2); Basophils % (auto) 0.3 % (0.0-2.0); Eosinophils # (auto) 0.1 10 ^3/uL (0-0.8); Eosinophils % (auto) 2.9 % (0.0-7.0); Hematocrit 37.2 % (41.0-53.0); Hemoglobin 12.2 g/dL (13.5-17.5); Lymphocytes # (auto) 1.6 10 ^3/uL (0.4-5.4); Lymphocytes % (auto) 31.1 % (10.0-50.0); Mean Corpuscular Hemoglobin 28.8 pg (28.0-32.0); Mean Corpuscular Hgb Conc. 32.7 g/dL (32.0-36.0); Mean Corpuscular Volume 88.3 fL (80.0-100.0); Monocytes # (auto) 0.6 10 ^3/uL (0-1.3); Monocytes % (auto) 11.4 % (0.0-12.0); Neutrophils # (auto) 2.8 10 ^3/uL (1.6-8.6); Neutrophils % (auto) 54.3 % (37.0-80.0); Nucleated Red Blood Cells % 0.1 %; Platelet Count (auto) 208 10^3/uL (140-450); Red Blood Cells 4.22 10^6/uL (4.5-5.90); Red Cell Distribution Width 14.8 % (11.8-14.3); White Blood Cell 5.1 10^3/uL (4.4-10.8)
[2019-05-23 06:18] LABS: Albumin 2.2 g/dL (3.4-5.0); Magnesium 2.2 mg/dL (1.6-2.6); Potassium 4.1 mmol/L (3.5-5.1)
[2019-05-23 06:21] LABS: BUN/Creatinine Ratio 15.8; Bilirubin, Total 0.3 mg/dL (0.2-1.0); Phosphorus 2.6 mg/dL (2.5-4.90); Total Protein 4.9 g/dL (6.4-8.2)
[2019-05-23] MEDS: metroNIDAZOLE 500MG/100ML 100 ML IV SCH (06:22)
[2019-05-23] MEDS: PROMETHAZINE HCL 25 MG/ML 1ML IV PRN (06:22)
[2019-05-23] MEDS: SUCRALFATE 1 GM/10 ML ORAL SUSP PO SCH (06:22)
[2019-05-23] MEDS: ACCU-CHEK COMFORT CURVE STRIP VI SCH ×2 (07:01)
--- NOTE | 2019-05-23 07:40 | NUR ---
Patient states right hand painful. IV X [address] Сергей Bess.
[2019-05-23 09:10] VITALS: BP 123/68
[2019-05-23] MEDS ORDERED: levoFLOXacin 500 MG TAB PO SCH (10:00)
[2019-05-23] MEDS: NIFEdipine ER 30 MG TAB PO SCH (10:41)
[2019-05-23] MEDS: PANTOPRAZOLE 40 MG TAB PO SCH (10:41)
[2019-05-23] MEDS: SOTALOL HCL 80 MG TAB PO SCH (10:42)
[2019-05-23] MEDS: LISINOPRIL 20 MG TAB PO SCH (10:43)
[2019-05-23] MEDS: METOPROLOL TARTRATE 25 MG TAB PO SCH (10:43)
--- NOTE | 2019-05-23 11:00 | NUR ---
Dr. Сергей Bess in to see patient as primary MD.
[2019-05-23] MEDS ORDERED: metroNIDAZOLE 500 MG TAB PO SCH (14:00)
== END 2019-05-23 13:15 | disposition home or self-care (01) | DRG 871 ==
LOC: ER 11:31 → TELE 11:32 → TELE-WESTW 15:52 → UNDODISIN 16:00
PROVIDERS: ADMIT Nurse Practitioner Acute Care; ATTEND Internal Medicine
PROC: 0DB68ZX Excision of Stomach, Via Natural or Artificial Opening Endoscopic, Diagnostic (ICD-10-PCS; principal; 2019-05-20 13:52)
DX: A41.50 Gram-negative sepsis, unspecified (principal); E43 Unspecified severe protein-calorie malnutrition; K57.32 Diverticulitis of large intestine without perforation or abscess without bleeding; N17.9 Acute kidney failure, unspecified; I73.9 Peripheral vascular disease, unspecified; F10.20 Alcohol dependence, uncomplicated; K76.0 Fatty (change of) liver, not elsewhere classified; D69.6 Thrombocytopenia, unspecified; N18.3 Chronic kidney disease, stage 3 (moderate); E11.22 Type 2 diabetes mellitus with diabetic chronic kidney disease; E11.51 Type 2 diabetes mellitus with diabetic peripheral angiopathy without gangrene; Z68.28 Body mass index [BMI] 28.0-28.9, adult; E86.0 Dehydration; E87.6 Hypokalemia; I25.2 Old myocardial infarction; I48.91 Unspecified atrial fibrillation; K29.70 Gastritis, unspecified, without bleeding; N40.0 Benign prostatic hyperplasia without lower urinary tract symptoms
CPT/HCPCS: 36415; 43239; 71046; 74176; 80048; 80053; 81001; 82040; 82962; 83605; 83735; 84100; 84154; 84478; 84484; 85007; 85025; 85027; 85610; 85730; 87040; 87076; 87077; 87186; 87493; 93005; 93306; 93926; 96361; 96365; 96375; G0378; J1956; J2001; J2250; J2405; J2543; J3480; J3490; J7060

== ENCOUNTER 2019-11-11 06:27 | Day surgery (SDC) | payer MEDICARE ==
[2019-11-08 09:46] LABS: Urine WBC None Seen /hpf (0 - 3)
[2019-11-08 09:52] LABS: Basophils # (auto) 0.1 10 ^3/uL (0-0.2); Basophils % (auto) 0.6 % (0.0-2.0); Eosinophils # (auto) 1.1 10 ^3/uL (0-0.8); Eosinophils % (auto) 13.7 % (0.0-7.0); Hemoglobin 14.8 g/dL (13.5-17.5); Lymphocytes # (auto) 1.4 10 ^3/uL (0.4-5.4); Lymphocytes % (auto) 17.2 % (10.0-50.0); Mean Corpuscular Hemoglobin 29.3 pg (28.0-32.0); Mean Corpuscular Hgb Conc. 32.9 g/dL (32.0-36.0); Monocytes # (auto) 0.8 10 ^3/uL (0-1.3); Monocytes % (auto) 9.3 % (0.0-12.0); Neutrophils # (auto) 4.8 10 ^3/uL (1.6-8.6); Neutrophils % (auto) 59.2 % (37.0-80.0); Platelet Count (auto) 225 10^3/uL (140-450); Red Blood Cells 5.05 10^6/uL (4.5-5.90); Red Cell Distribution Width 15.1 % (11.8-14.3); White Blood Cell 8.1 10^3/uL (4.4-10.8)
[2019-11-08 09:55] LABS: Urine Bacteria NONE SEEN /hpf (None Seen); Urine Blood Negative /uL (Negative); Urine Specific Gravity 1.012 (1.001-1.035)
[2019-11-08 11:07] LABS: Potassium 4.6 mmol/L (3.5-5.1)
[2019-11-08 11:34] LABS: Albumin 3.5 g/dL (3.4-5.0); Bilirubin, Total 0.5 mg/dL (0.2-1.0); Calcium 8.5 mg/dL (8.5-10.1); Total Protein 7.1 g/dL (6.4-8.2)
[2019-11-08 11:51] LABS: INR 1.07 (0.9-1.15); Partial Thromboplastin Time 28.5 sec (23.0-31.2)
[~2019-11-11] VITALS: Ht 172.7 cm; Wt 76.2 kg
[~2019-11-11 06:27] MED LIST: LISI-648 PO
[2019-11-11] MEDS ORDERED: SUCCINYLCHOLINE CHLORIDE 20 MG/ML 10ML VIAL IV ONE (07:01)
[2019-11-11] MEDS ORDERED: LIDOCAINE 1% HCL (LOCAL ANESTH.) INJ 20ML MDV ONE (07:01)
[2019-11-11] MEDS ORDERED: fentaNYL CITRATE 100 MCG/2 ML VL ONE (07:22)
[2019-11-11] MEDS ORDERED: PROPOFOL 10 MG/ML 20 ML IV ONE (07:22)
[2019-11-11] MEDS ORDERED: SODIUM CHLORIDE LOCK 10 ML ONE (07:22)
[2019-11-11] MEDS ORDERED: MIDAZOLAM HCL 1MG/1ML-2 ML VIAL ONE (07:22)
[2019-11-11] MEDS ORDERED: KETAMINE HCL 10 ML ONE (07:38)
[2019-11-11] MEDS ORDERED: ONDANSETRON HCL 4 MG/2 ML VIAL IV ONE (07:40)
[2019-11-11] MEDS ORDERED: HYDROmorphone HCL 2 MG/ML VL IV PRN (07:45)
[2019-11-11] MEDS ORDERED: MORPHINE SULFATE 4 MG/ML SYR/VIAL IV PRN (07:45)
[2019-11-11] MEDS ORDERED: CIPROFLOXACIN 400MG/200ML 200 ML IV ONE (07:50)
[2019-11-11] MEDS ORDERED: hydrALAZINE HCL 20 MG/ML VL ONE (09:19)
[2019-11-11] MEDS ORDERED: hydrALAZINE HCL 20 MG/ML VL IV ONE (09:20)
[2019-11-11 10:05] VITALS: BP 145/79
== END 2019-11-11 10:14 | disposition home or self-care (01) ==
LOC: SUR 06:27
PROVIDERS: ATTEND Urology
DX: R97.20 Elevated prostate specific antigen [PSA] (principal); N40.1 Benign prostatic hyperplasia with lower urinary tract symptoms; R35.1 Nocturia; D64.9 Anemia, unspecified; I10 Essential (primary) hypertension; Z20.828 Contact with and (suspected) exposure to other viral communicable diseases
CPT/HCPCS: 36415; 52000; 55700; 76872; 80053; 81001; 85025; 85610; 85730; 88305; 88342; C1769; J0330; J0360; J0744; J1170; J2001; J2250; J2405; J2704; J3010; J7030; U0003

== ENCOUNTER 2019-11-16 09:42 | Emergency (ER) | payer MEDICARE ==
[~2019-11-16] VITALS: Ht 167.6 cm; Wt 76.2 kg
[2019-11-16 11:08] LABS: Urine Bacteria MANY /hpf (None Seen); Urine Blood 2+ /uL (Negative); Urine Specific Gravity 1.013 (1.001-1.035); Urine WBC 96 /hpf (0 - 3); Urine WBC Clumps PRESENT /hpf (None Seen)
[2019-11-16] MEDS ORDERED: PHENAZOPYRIDINE HCL 100 MG TAB PO ONE (11:30)
[2019-11-16] MEDS ORDERED: levoFLOXacin 250 MG TAB PO ONE (11:30)
[2019-11-16 11:58] VITALS: BP 125/65
[2019-11-16] MEDS ORDERED: ACETAMINOPHEN/CODEINE#3 (300/30mg) TAB PO ONE (12:00)
== END 2019-11-16 12:02 | disposition home or self-care (01) ==
LOC: ER 09:42
DX: N39.0 Urinary tract infection, site not specified (principal)
CPT/HCPCS: 81001

== ENCOUNTER 2019-11-19 13:00 | Emergency (ER) | payer MEDICARE ==
[~2019-11-19] VITALS: Ht 172.7 cm; Wt 76.2 kg
[2019-11-19] MEDS ORDERED: SODIUM CHLORIDE 0.9% 1,000 ML IV ONE (13:29)
[2019-11-19] MEDS ORDERED: ONDANSETRON HCL 4 MG/2 ML VIAL IV ONE (14:00)
[2019-11-19] MEDS ORDERED: MORPHINE SULFATE 4 MG/ML SYR/VIAL IV ONE (14:00)
[2019-11-19 14:06] LABS: Urine Bacteria MANY /hpf (None Seen); Urine Blood 2+ /uL (Negative); Urine Mucus FEW (None Seen); Urine Specific Gravity 1.013 (1.001-1.035); Urine WBC 361 /hpf (0 - 3); Urine WBC Clumps PRESENT /hpf (None Seen)
[2019-11-19 14:26] LABS: Basophils # (auto) 0 10 ^3/uL (0-0.2); Basophils % (auto) 0.2 % (0.0-2.0); Eosinophils # (auto) 0.4 10 ^3/uL (0-0.8); Eosinophils % (auto) 2.9 % (0.0-7.0); Hemoglobin 12.5 g/dL (13.5-17.5); Lymphocytes # (auto) 1.3 10 ^3/uL (0.4-5.4); Lymphocytes % (auto) 9.6 % (10.0-50.0); Mean Corpuscular Hemoglobin 29.4 pg (28.0-32.0); Mean Corpuscular Hgb Conc. 33.7 g/dL (32.0-36.0); Mean Corpuscular Volume 87.2 fL (80.0-100.0); Monocytes # (auto) 1.4 10 ^3/uL (0-1.3); Monocytes % (auto) 9.9 % (0.0-12.0); Neutrophils # (auto) 10.6 10 ^3/uL (1.6-8.6); Neutrophils % (auto) 77.4 % (37.0-80.0); Platelet Count (auto) 276 10^3/uL (140-450); Red Blood Cells 4.24 10^6/uL (4.5-5.90); White Blood Cell 13.6 10^3/uL (4.4-10.8)
[2019-11-19 14:52] LABS: Albumin 2.4 g/dL (3.4-5.0); Anion Gap 11 (5-15); Blood Urea Nitrogen 29 mg/dL (7-18); Calcium 8.2 mg/dL (8.5-10.1); Carbon Dioxide 19 mmol/L (21-32); Chloride 98 mmol/L (98-107); Glucose 100 mg/dL (74-106); Lipase 145 U/L (73-393); Potassium 4.2 mmol/L (3.5-5.1); Sodium 128 mmol/L (136-145)
[2019-11-19 14:55] LABS: Alanine Aminotransferase 143 U/L (16-61); Alkaline Phosphatase 203 U/L (45-117); Aspartate Aminotransferase 88 U/L (15-37); BUN/Creatinine Ratio 15.9; Bilirubin, Total 0.9 mg/dL (0.2-1.0); GFR African American 47 mL/min; GFR Non-African American 39 mL/min; Total Protein 6.8 g/dL (6.4-8.2)
[2019-11-19] MEDS ORDERED: cefTRIAXone 1GM/50ML D5W 50 ML IV ONE (16:45)
[2019-11-19 18:00] VITALS: BP 154/88
== END 2019-11-19 18:50 | disposition home or self-care (01) ==
LOC: ER 13:00
DX: N39.0 Urinary tract infection, site not specified (principal); E44.0 Moderate protein-calorie malnutrition; E87.1 Hypo-osmolality and hyponatremia; D72.829 Elevated white blood cell count, unspecified
CPT/HCPCS: 36415; 71045; 74176; 80053; 81001; 83690; 84484; 85025; 96361; 96365; 96375; 99285; J0696; J2270; J2405

== ENCOUNTER 2020-01-07 16:34 | Emergency (ER) | payer MEDICARE ==
[~2020-01-07] VITALS: Ht 172.7 cm; Wt 74.4 kg
[~2020-01-07 16:34] MED LIST changes: +CHOLPOW XX
[2020-01-07 16:41] VITALS: BP 131/74
[2020-01-07] MEDS ORDERED: methylPREDNISolone SOD SUCC 125 MG/2 ML VL IM ONE (17:30)
[2020-01-07] MEDS ORDERED: EPINEPHrine HCL 1 MG/1 ML AMP SC ONE (17:30)
== END 2020-01-07 18:05 | disposition home or self-care (01) ==
LOC: ER 16:34
DX: L23.89 Allergic contact dermatitis due to other agents (principal); E78.5 Hyperlipidemia, unspecified; I10 Essential (primary) hypertension
CPT/HCPCS: 96372; 99284; J0171; J2930

== ENCOUNTER → 2020-03-16 | Outpatient (CLI) | payer MEDICARE ==
[2020-03-16 13:03] LABS: Albumin 3.1 g/dL (3.4-5.0); Bilirubin, Direct 0.1 mg/dL (0-0.2)
[2020-03-16 13:07] LABS: Bilirubin, Total 0.4 mg/dL (0.2-1.0); Total Protein 6.3 g/dL (6.4-8.2)
== END | disposition home or self-care (01) ==
LOC: LAB 12:05
PROVIDERS: ATTEND Urology
DX: E29.1 Testicular hypofunction (principal); R97.20 Elevated prostate specific antigen [PSA]
CPT/HCPCS: 36415; 80076; 84154; 84403

== ENCOUNTER → 2020-03-27 | Outpatient (CLI) | payer MEDICARE ==
[~2020-03-27] MED LIST changes: -LISI-648 PO; +LISI-716 PO
== END | disposition home or self-care (01) ==
LOC: LAB 16:45
PROVIDERS: ATTEND Urology
DX: N39.0 Urinary tract infection, site not specified (principal)
CPT/HCPCS: 87086; 87088; 87186

== ENCOUNTER 2022-05-13 08:48 | Emergency (ER) | payer MEDICARE ==
[~2022-05-13] VITALS: Ht 172.7 cm; Wt 84.0 kg
[2022-05-13 09:39] VITALS: BP 116/72
[2022-05-13] MEDS ORDERED: IPRATROPIUM BROM 0.5 MG/2.5ML INH SOL NEB ONE (09:45)
[2022-05-13] MEDS ORDERED: ALBUTEROL SULF 2.5 MG/0.5ML(0.5%) NEB SOLN NEB ONE (09:45)
[2022-05-13] MEDS ORDERED: DexAMETHasone SOD PHOS 10MG/1ML VIAL INJ IM ONE (09:45)
[2022-05-13] MEDS ORDERED: BENZ100C19 PO (11:56)
[2022-05-13] MEDS ORDERED: ACET-1158 PO (11:56)
[2022-05-13] MEDS ORDERED: LORA-483 GT (11:56)
== END 2022-05-13 11:57 | disposition home or self-care (01) ==
LOC: ER 08:48
DX: J06.9 Acute upper respiratory infection, unspecified (principal); F32.9 Major depressive disorder, single episode, unspecified; I10 Essential (primary) hypertension; E78.5 Hyperlipidemia, unspecified; Z20.822 Contact with and (suspected) exposure to COVID-19
CPT/HCPCS: 36415; 71046; 87426; 87804; 94640; 96372; 99284; J1100; J7644

== ENCOUNTER 2022-10-06 18:02 | Emergency (ER) | payer MEDICARE ==
[~2022-10-06] VITALS: Ht 167.6 cm; Wt 81.8 kg
[~2022-10-06 18:02] MED LIST changes: +ACET500T58 PO; +BENZ100C19 PO; -LISI-716 PO; +LISI10TA34 PO; +LORA-483 GT
[2022-10-06] MEDS ORDERED: SODIUM CHLORIDE 0.9% 500 ML IV ONE (18:30)
[2022-10-06 19:12] LABS: Basophils # (auto) 0 10 ^3/uL (0-0.2); Eosinophils # (auto) 0 10 ^3/uL (0-0.8); Hematocrit 35.9 % (41.0-53.0); Hemoglobin 11.9 g/dL (13.5-17.5); Lymphocytes # (auto) 0.5 10 ^3/uL (0.4-5.4); Lymphocytes % (auto) 5.6 % (10.0-50.0); Mean Corpuscular Hgb Conc. 33.2 g/dL (32.0-36.0); Mean Corpuscular Volume 90.3 fL (80.0-100.0); Monocytes # (auto) 0.1 10 ^3/uL (0-1.3); Monocytes % (auto) 1.2 % (0.0-12.0); Neutrophils # (auto) 8.5 10 ^3/uL (1.6-8.6); Neutrophils % (auto) 93.2 % (37.0-80.0); Red Blood Cells 3.98 10^6/uL (4.5-5.90); Red Cell Distribution Width 15.5 % (11.8-14.3); White Blood Cell 9.1 10^3/uL (4.4-10.8)
[2022-10-06 19:34] LABS: Albumin 3.3 g/dL (3.4-5.0); BUN/Creatinine Ratio 15.3 (10.0-20.0); Calcium 8.2 mg/dL (8.5-10.1); Potassium 4.4 mmol/L (3.5-5.1)
[2022-10-06 19:37] LABS: Bilirubin, Total 0.5 mg/dL (0.2-1.0); Total Protein 6.4 g/dL (6.4-8.2)
[2022-10-06 20:48] VITALS: BP 101/61; PULSE 75; RESP 18; TEMP 97.9; O2SAT 94
== END 2022-10-06 20:56 | disposition home or self-care (01) ==
LOC: ER 18:02 → EDBD 18:02 → ER 20:55
DX: E86.0 Dehydration (principal); R42 Dizziness and giddiness; R73.9 Hyperglycemia, unspecified; N28.9 Disorder of kidney and ureter, unspecified; I10 Essential (primary) hypertension; E78.5 Hyperlipidemia, unspecified; F32.9 Major depressive disorder, single episode, unspecified
CPT/HCPCS: 36415; 70450; 80053; 83880; 84484; 85025; 93005

== ENCOUNTER 2023-04-22 16:30 | Inpatient (IN) | payer MEDICARE ==
[~2023-04-22] VITALS: Ht 170.2 cm; Wt 77.9 kg
[2023-04-22 18:25] LABS: Alanine Aminotransferase 24 U/L (7-40); Albumin 4.3 g/dL (3.2-4.8); Alkaline Phosphatase 111 U/L (46-116); Anion Gap 6 (5-15); Aspartate Aminotransferase 29 U/L (13-40); BUN/Creatinine Ratio 15.3 (10.0-20.0); Blood Urea Nitrogen 15 mg/dL (9-23); Calcium 9.1 mg/dL (8.5-10.1); Carbon Dioxide 25 mmol/L (20-30); Chloride 108 mmol/L (98-107); Glucose 103 mg/dL (74-106); Potassium 4.4 mmol/L (3.5-5.1); Sodium 139 mmol/L (136-145)
[2023-04-22 18:26] LABS: Bilirubin, Total 0.8 mg/dL (0.2-1.0); Total Protein 5.8 g/dL (5.7-8.2)
[2023-04-22 18:31] LABS: Hematocrit 38.6 % (41.0-53.0); Hemoglobin 12.9 g/dL (13.5-17.5); Mean Corpuscular Hemoglobin 29.8 pg (28.0-32.0); Mean Corpuscular Hgb Conc. 33.4 g/dL (32.0-36.0); Mean Corpuscular Volume 89.3 fL (80.0-100.0); Red Blood Cells 4.32 10^6/uL (4.5-5.90); Red Cell Distribution Width 14.2 % (11.8-14.3); White Blood Cell 6.9 10^3/uL (4.4-10.8)
[2023-04-22 18:41] LABS: Band Neutrophils % (manual) 0; Basophils % (manual) 0 (0.0-2.0); Blast Cells 0; Metamyelocytes % 0; Myelocytes % 0; Promyelocytes % 0; Reactive Lymphocytes 0
[2023-04-22] MEDS ORDERED: MORPHINE SULFATE INJ 2 MG/ml SYRG IV PRN ×2 (19:00)
[2023-04-22] MEDS ORDERED: TEMAZEPAM 15 MG CAP PO PRN (19:00)
[2023-04-22] MEDS ORDERED: ONDANSETRON HCL 4 MG/2 ML VIAL IV PRN (19:00)
[2023-04-22] MEDS ORDERED: NITROGLYCERIN 0.4 MG SL TAB SL PRN (19:00)
[2023-04-22] MEDS ORDERED: HYDROcodone-ACET 5/325MG TAB PO PRN (19:00)
[2023-04-22 19:25] LABS: Erythrocyte Sedimentation Rate 13 mm/hr (0-20)
[2023-04-22 19:33] LABS: Anisocytosis Slight; Eosinophils % (manual) 26 (0-7); Lymphocytes % (manual) 20 (10.0-50.0); Monocytes % (manual) 10 (0-12); Platelet Estimate Adequate
[2023-04-22] MEDS: ENOXAPARIN SOD 100 MG/1 ML SYRINGE SC ONE (22:01)
[2023-04-22] MEDS: ENOXAPARIN SOD 80 MG/0.8ML SYRINGE SC SCH (22:02)
[2023-04-23 01:06] VITALS: PULSE 72; RESP 17; O2SAT 97
[2023-04-23 05:42] LABS: Hematocrit 36.3 % (41.0-53.0); Mean Corpuscular Hemoglobin 29.6 pg (28.0-32.0); Mean Corpuscular Volume 89.9 fL (80.0-100.0); Red Blood Cells 4.04 10^6/uL (4.5-5.90); Red Cell Distribution Width 14.3 % (11.8-14.3); White Blood Cell 7.9 10^3/uL (4.4-10.8)
[2023-04-23 05:45] LABS: Alanine Aminotransferase 20 U/L (7-40); Albumin 3.8 g/dL (3.2-4.8); Alkaline Phosphatase 97 U/L (46-116); Anion Gap 3 (5-15); Aspartate Aminotransferase 28 U/L (13-40); BUN/Creatinine Ratio 12.1 (10.0-20.0); Bilirubin, Total 0.7 mg/dL (0.2-1.0); Blood Urea Nitrogen 11 mg/dL (9-23); Calcium 8.3 mg/dL (8.7-10.4); Carbon Dioxide 24 mmol/L (20-30); Chloride 112 mmol/L (98-107); Glucose 90 mg/dL (74-106); Potassium 4.5 mmol/L (3.5-5.1); Sodium 139 mmol/L (136-145); Total Protein 5.6 g/dL (5.7-8.2)
[2023-04-23 05:49] LABS: Band Neutrophils % (manual) 0; Basophils % (manual) 0 (0.0-2.0); Blast Cells 0; Metamyelocytes % 0; Myelocytes % 0; Promyelocytes % 0; Reactive Lymphocytes 0
[2023-04-23 08:14] VITALS: PULSE 60; RESP 16; O2SAT 96
[2023-04-23 09:16] LABS: Eosinophils % (manual) 27 (0-7); Lymphocytes % (manual) 24 (10.0-50.0); Monocytes % (manual) 19 (0-12); Platelet Estimate Adequate
[2023-04-23 09:40] VITALS: BP 136/73; PULSE 85; RESP 20; O2SAT 97
[2023-04-23 10:44] VITALS: RESP 16; O2SAT 97
[2023-04-23 12:36] VITALS: BP 134/67; PULSE 54; RESP 19; TEMP 97.9; O2SAT 100
[2023-04-23] MEDS ORDERED: APIX5TAB PO ×2 (13:46→13:50)
== END 2023-04-23 15:33 | disposition home or self-care (01) | DRG 301 ==
LOC: ER 16:30 → OVERFLOW 18:55 → CENTRAL 04-23 09:51
PROVIDERS: ADMIT Nurse Practitioner; ATTEND Nurse Practitioner
DX: I82.413 Acute embolism and thrombosis of femoral vein, bilateral (principal); F32.A Depression, unspecified; E78.5 Hyperlipidemia, unspecified; I10 Essential (primary) hypertension; N40.0 Benign prostatic hyperplasia without lower urinary tract symptoms; Z79.899 Other long term (current) drug therapy; Z86.16 Personal history of COVID-19; Z80.0 Family history of malignant neoplasm of digestive organs; Z80.8 Family history of malignant neoplasm of other organs or systems
CPT/HCPCS: 36415; 71045; 80053; 83605; 83880; 84484; 85007; 85027; 85652; 86141; 93970; 96372; G0378